=== PATIENT | female | born 1985 | race Caucasian/White ===

== ENCOUNTER 2019-07-16 05:49 | Day surgery (SDC) | payer OTHER, MEDICAID, SELFPAY ==
[2019-07-13 10:10] VITALS: BMI 21.8
[2019-07-16] VITALS (17 sets, daily range): BP systolic 113–154; BP diastolic 72–94; PULSE 91–142; RESP 12–22; TEMP 36–36.7; O2SAT 86–98; BMI 21.8
[2019-07-16] MEDS: LACTATED RINGERS 1,000 ML 42 ML IV ×2 (07:20→10:16)
--- NOTE | 2019-07-16 07:36 | PM.PREOP ---
Pre-operative Note Interval Note History & Physical reviewed/Exam performed by Physician: Yes Changes to H&P: No
--- NOTE | 2019-07-16 07:36 | PM.OP.1 ---
Operative Date/Time/Diagnoses Date of procedure: 07/16/19 Time of procedure: 07:36 Pre-op diagnosis: Left hallux abductovalgus with bunion, pain Post-op diagnosis: same Procedure & Clinicians Procedure: Left first metatarsophalangeal joint arthrodesis Same procedure as scheduled: Yes Indications: Painful hallux abductovalgus with bunion deformity and flexible foot with instability. Conservative measures failed to alleviate her main and she wished to have surgical intervention at this time. Consent was reviewed, there are no contraindications to the procedure at this time. Of note she mentioned that she did not get connected with physical therapy at head of the procedure so she does not have her counseling on that nor the assistive device. In speaking with nursing today they stated that they were able to have physical therapy work with her while in recovery for consultation and once she is deemed appropriate with using the assistive device we will determine the best course of action to prescribe her that device. Surgeon: Jane Robles Click Yes if Unassisted: Yes Anesthesia Type: General Operative Notes Closure Type: primary Specimen(s): none sent Prosthetic devices, grafts, tissues, transplants, or devices: [place] straight plate and 2.7 locking and non-locking screws(5), 4.0 cannulated screw DBM putty ([place]) Estimated Blood Loss (mL): 30 Blood products transfused: none Procedure in detail: The patient was brought to the operating room and placed on the operating table in the supine position. A tourniquet was placed about the patient's calf. After induction of general anesthesia the foot and ankle were prepped and draped in the usual aseptic manner. The tourniquet was inflated. Incision was made over the dorsal aspect of the left 1st metatarsophalangeal joint. The incision was deepened through subcutaneous tissues being careful to identify and retract all vital neurovascular structures. All bleeders were cauterized and ligated necessary. The capsule was opened and I noted an enlarged medial eminence of the 1st metatarsal head and there were degenerative changes noted to the cartilage on the 1st metatarsal head and base of the proximal phalanx. The extensor tendon was fairly both strong and tight to the great toe.. A saw was used to resect the medial eminence enlargement as well as some of the prominent dorsal 1st metatarsal head. Areas of spurring at the base of the proximal phalanx were also reduced. At this point the tourniquet was let down and a 2nd tourniquet was placed about the ankle. The 1st tourniquet was removed entirely and the 2nd tourniquet was inflated. This allowed for better site and seem to fit her ankle better. A guidewire was placed in the 1st metatarsal head and a reamer was used to resect the cartilage from the 1st metatarsal head and prepare the joint. The same procedure was performed to the proximal phalanx base. These guidewires were then removed. Subchondral drilling was performed to either side with the guidewire as well as some fish scaling using a small osteotome. The area was irrigated with copious amount of normal sterile saline. Temporary fixation across the joint was placed with a guidewire and this was checked under C-arm to be in appropriate alignment. A plate was chosen and any further reduction of prominences dorsally was performed with a rasp and rongeur. Using the aid of fluoroscopy, the guide wire was used as cannulation for partially threaded screw was placed and the guidewire removed. Good strength and reduction of the former joint. Plate was placed and with the aid of fluoroscopy two screws were placed. It was then that the lag screw lost security as the proximal phalanx area fractured through. The plate and screws were all removed. DBM was placed in the center of the arthrodesis site, and a new guidewire was placed lateral distal to proximal medial. This was set more medial to allow for less distal torque. Using the aid of fluoroscopy, the guide wire was used as cannulation for the drill for a lag screw from the distal lateral to proximal medial 1st metatarsal phalangeal joint. Confirmed appropriate in all 3 planes, a partially threaded screw was placed and the guidewire removed. Good strength and reduction of the former joint. Next, a plate was selected and a series of locking screws and a nonlocking screw were placed across the plate and steadied the joint well. This was checked on C-arm. The area is irrigated with copious amounts normal sterile saline. The tourniquet was deflated and prompt hyperemic response was seen to the foot. And no motion was noted at the 1st MTPJ. Subcutaneous closure was performed using Vicryl and nylon was used to close the skin. A sterile lightly compressive dressing was placed on the foot and she was placed in her postoperative boot. She was transferred to the PACU with vital signs stable and vascular status intact. Complications: none Post-operative Condition: stable Disposition: PACU Plan for aftercare: Following a period of postoperative monitoring, the patient be discharged home on written and oral postoperative instructions including keeping the dressing dry and intact, very lmited weight to the foot (termed partial, due to her use of a walker most likely). Icing and elevating the foot when seated home. DVT prevention techniques have been reviewed. s/p week 4 will likely be first x-ray. Very limited weightbearing for 4-6 wks.
[2019-07-16] MEDS: CEFAZOLIN 2 GM/100 ML FROZ.PIGGY IV (08:00)
[2019-07-16] MEDS: BUPIVACAINE 0.5% (PF) VIAL 30 ML INJ (08:20)
--- NOTE | 2019-07-16 11:23 | SUR.PHASEI ---
PT UNABLE TO VOID , DR DAWSON NOTIFIED, PT STRAIGHT CATH'D FOR 800+ CC CLEAR YELLOW URINE. PT DENIES ANY PAIN IN FOOT,
--- NOTE | 2019-07-16 11:31 | PT.IIE ---
Current Diagnoses Hallux valgus (acquired), left foot (07/16/19) Flat foot [pes planus] (acquired), left foot (07/16/19) Pain in left foot (07/16/19) Surgery Performed Operation Date: 07/16/19 07:45 Actual Procedures p First metartarsophalangeal joint fusion(Left) - Jane Robles DPM Surgical History (Last Updated 07/13/19 @ 10:20 by Mamta Mehta RN) History of partial hysterectomy (Acute) History of throat surgery (Acute) Hx of eye surgery (Acute) Medical History (Last Updated 07/13/19 @ 10:20 by Mamta Mehta RN) Achalasia, esophageal (Acute) Anxiety (Acute) Asthma (Acute) Back pain (Acute) Bipolar disorder (Acute) Bunion of great toe (Acute) Cervicitis (Acute) Chronic pelvic pain in female (Acute) Chronic rhinitis (Acute) Dyshidrotic dermatitis (Acute) Endocervicitis (Acute) Functional cyst of ovary (Acute) GERD (gastroesophageal reflux disease) (Acute) History of developmental delay (Acute) HLD (hyperlipidemia) (Acute) Hyperglycemia (Acute) Intermittent diarrhea (Acute) Kyphoscoliosis (Acute) Left foot pain (Acute) Pancreatitis (Acute) Retinal detachment (Acute) Schizoaffective disorder (Acute) Scoliosis (Acute) Subglottic stenosis (Acute) Physical Therapy Inpatient Evaluation/Re-Eval M1 PT/OT-IP Prior Functional Status Start: 07/16/19 13:05 Freq: NEEDED Status: Active Protocol: Document 07/16/19 11:31 AB (Rec: 07/16/19 13:30 AB [id number]) Medical Review Prior Functional Status Medical History Reviewed Yes Communication able to make needs known Mobility and Gait pt stated that she is independent with all mobilities and ambulation without AD Social History Household Members none Living Arrangements House Number of Floors (Floors) Two Floors Number of Stairs To Enter/Railing? pt will be staying with his father and step mom. home set up is regarding father's house. 1 step to enter Home Environment Standard Height Toilet,Walk in Shower Home Equipment Hand Held Shower M2 PT-IP Current Condition Start: 07/16/19 13:05 Freq: NEEDED Status: Active Protocol: Document 07/16/19 11:31 AB (Rec: 07/16/19 13:30 AB [id number]) Physical Therapy Current Condition Current Condition Evaluation Date 07/16/19 Treatment Diagnosis s/p 1st metatarsophalangeal joint arthrodesis; difficulty in walking Onset Date 07/16/19 Precautions Brace L foot boot Weight Bearing Status Weight Bearing Status Non-Weight Bearing Allowed Weight Bearing Amount (enter % LLE NWB per nurse; per MD or #) (%) order: very limited weight to the L foot M3 PT-IP Subjective Start: 07/16/19 13:05 Freq: NEEDED Status: Active Protocol: Document 07/16/19 11:31 AB (Rec: 07/16/19 13:30 AB [id number]) Subjective Physical Therapy Visit Type Type Initial Evaluation Visit Start Time 11:31 Visit Stop Time 13:02 Total Visit Minutes 91 Number of PACKAGING LINE ATTENDANT Visits 0 Physical Therapy Visit Comments Patient Comments pt agreeable to do PT Therapy Pain Assessment Pain Present Pain Present Denied Pain M4 PT-IP Mobility and Gait Start: 07/16/19 13:05 Freq: NEEDED Status: Active Protocol: Document 07/16/19 11:31 AB (Rec: 07/16/19 13:30 AB [id number]) PT-Bed Mobility Assessment Supine to Sit Supine to Sit Independent Sit to Supine Sit to Supine Standby Assistance PT-Transfer Assessment Sit to and From Stand Sit to and from Stand Contact Guard Assistance Equipment Transfer Assistive Device Gait Belt,Front Wheeled Walker Gait Assessment Gait Gait Assistance Required: Contact Guard Assist,Minimum Assistance Distance (Feet) 20 Able to Maintain Weight Bearing Status Yes During Gait Assistive Devices Assistive Device Gait Belt,Front Wheeled Walker Orthotic/Prosthetic Devices or Brace: No Gait Deviations General Gait Pattern Decreased Stride Length, Decreased Feet Clearance Factors Limiting Gait Function Factors Limiting Gait Function Decreased Activity Tolerance, Decreased Strength,Limited Range of Motion,Poor Balance, Poor Safety Awareness, Respiratory Distress Comments Gait Comments Gait training conducted and educated pt on NWB on LLE. per step mom, pt is legally blind . nurse also stated that pt is also developementally delayed. pt completed sit to stand from EOB min A and cues. pt can be impulsive with slight LOB tilting to the R requiring min A to stabilize and cues to slow down. pt with SOB but stated that she is fine. educated pt and step mom on equipement needs and level of assistance. pt has 1 step to enter the house. attempted up/down step stool. PT demonstrated and educated pt on how to complete but pt unable. advised pt and step mom that pt will need a w/c to get into the house and for long distance mobility. pt ambulated again ~ 20 ft and cued for safety. caregiver training conducted. educated step mom on how to use the safety belt and how to assist pt. step mom assisted pt with sit to stand and ambulation using FWW and completed safely. recommended FWW,w/c, shower chair for pt. DME list provided to pt's step mom. Requested orders for FWW. dispensed FWW to pt. Stair Climbing Assessment Comments Stair Climbing Comments attempted up/down 1 step stool but pt unable. PT-Balance Assessment Sitting Balance and Reactions Static Sitting Balance Ability Good Dynamic Sitting Balance Ability Good Standing Balance and Reactions Static Standing Balance Ability Fair Dynamic Standing Balance Ability Fair Device Used FWW M5 PT-IP Objective Assessments Start: 07/16/19 13:05 Freq: NEEDED Status: Active Protocol: Document 07/16/19 11:31 AB (Rec: 07/16/19 13:30 AB [id number]) Orientation Orientation/Cognition Level of Alertness Alert Orientation Name,Place,Situation Safety Awareness Decreased Safety Awareness Gross Range of Motion Lower Extremity ROM Assessment Left Impaired Impairments L has post-op boot on Strength Lower Extremity Strength Assessment Left Impaired Comments Strength Comments L foot has post-op boot on Coordination Assessment Gross Coordination Gross Coordination WNL Sensation Assessment Sensation Gross Sensation Left LE Impaired Sensation Description Numbness Comments Sensation Comments stated that L foot is still numb Muscle Tone Muscle Tone WNL Yes M6 PT-IP Treatment Start: 07/16/19 13:05 Freq: NEEDED Status: Active Protocol: Document 07/16/19 11:31 AB (Rec: 07/16/19 13:30 AB [id number]) Physical Therapy Treatment Education Education Provided Precautions,Weight Bearing Status,Safety M7 PT-IP Assessment and Plan Start: 07/16/19 13:05 Freq: NEEDED Status: Active Protocol: Document 07/16/19 11:31 AB (Rec: 07/16/19 13:30 AB [id number]) PT Summary Assessment and Plan Potential Rehabilitation Potential Good Status of Condition at Evaluation Stable Summary Impairments Pain,ROM,Strength,Balance, Coordination,Sensation,Tone, Cognition,Bed Mobility, Transfers,Gait,Activity Tolerance Assessment Summary pt requiring CGA to min A with ambulation using FWW. caregiver training conducted with pt's step mom and is able to safely assist pt. recommending w/c for long distance ambulation and for family to assist pt to get into the house with w/c as pt is unable to go up/down 1 step. Family understood and agreed. DME list given. dispensed FWW to pt. Pt plans to go home with family to assist her. no further PT intervention indicated. Goals Gait Goal Standby Assistance,Front Wheel Walker Other Goals to conduct caregiver training as appropriate to safely assist pt. Days to Meet Goals 1 Frequency of Treatment Frequency Of Treatment Discharge Treatment Plan Physical Therapy Treatment Plan Bed Mobility Training,Transfer Training,Gait Training,Post Op Education Recommendations To Nursing Amount of Assist Needed 1 Person Assist Discharge Recommendations PT Discharge Recommendations Home with / Assist
--- NOTE | 2019-07-16 11:53 | SUR.PHASEI ---
PT AT BEDSIDE NOW WITH PT, STEP MOM AT BEDSIDE WITH PT. PT DENIES ANY PAIN OR DISCOMFORT IN FOOT.
--- NOTE | 2019-07-16 12:45 | SUR.PHASEI ---
Physical Therapy at bedside at approx 1215pm working with pt. pt tolerated well.
[2019-07-16] MEDS: ALBUTEROL/IPRATROPIUM 3 ML AMPUL INH (13:10)
--- NOTE | 2019-07-16 13:26 | SUR.PHASEII ---
pt eating lunch with step mother at bedside, pt denies any pain or discomfort.
--- NOTE | 2019-07-16 13:38 | SUR.PHASEII ---
pt using incentive spirometer, pulse ox on room air 91-94%
[2019-07-16] MEDS: ALBUTEROL 2.5 MG/3 ML NEB (ADULT) INH (14:32)
--- NOTE | 2019-07-16 15:16 | SUR.PHASEII ---
PT UP TO BR X2 WITH ASSISTANCE, TOLERATING FOOD AND DRINK, DENIES ANY PAIN OR DISCOMFORT,RESPIRATORY WAS IN TO SEE PT AND EVALUATE, THEY GAVE RESP TX . PT DENIES DIFFICULTY BREATHING DENIES FEELING SOB, STATING THIS IS HOW I AM, STEP MOM STATES SHE HAS HX OF MUCH SCAR TISSUE IN THROAT FROM HAVING TRACH FOR SEVERAL WEEKS A PREMATURE , STATES SHE IS DUE TO SEE HER ENT DR FOR ANOTHER EVAL AND POSSIBLE ROTO ROOTER OF SCAR TISSUE, ALSO STATES PT HAS THIS ROTO ROOTERPROCEDURE EVERY FEW YEARS AND SHE IS OVER DUE FOR THIS PROCEDURE. BOTH STEP MOM AND PT FEEL PT IS OK TO GO HOME PT WILL BE STAYING WITH HER FATHER AND STEP MOTHER FOR THE NEXT FEW DAYS. LUNGS ARE CLEAR TO AUSCULTATION, PULSE OX 90-96% ON ROOM AIR, SPOKE WITH DR HINTON AND DR DAWSON AND NOTIFIED THEM OF PTS DESIRE TO GO HOME, OK WITH BOTH DR HINTON AND DR DAWSON FOR PT TO GO HOME, PT ENCOURAGED TO FOLLOW UP WITH HER ENT .
== END 2019-07-16 14:50 ==
PROVIDERS: Visit Provider Podiatrist
PROC: (CPT 26535; principal; 2019-07-16 07:45)
DX: M20.12 Hallux valgus (acquired), left foot (principal); M21.42 Flat foot [pes planus] (acquired), left foot; F41.9 Anxiety disorder, unspecified; J45.909 Unspecified asthma, uncomplicated
CPT/HCPCS: 28750; 94640; 97116; 97162; 97530; J0690; J1100; J2250; J2405; J2704; J3010; J7613